=== PATIENT | female | born 1940 | race Caucasian/White ===

== ENCOUNTER 2019-04-17 14:34 | Outpatient (CLI) | payer MEDICARE, SELFPAY ==
--- NOTE | 2019-04-17 14:42 | XR_ITS ---
WS: [id number] SCREENING DEXA SCAN [facility] CLINICAL INFORMATION: UNSPECIFIED VITAMIN D DEFICIENCY, OSTEOPENIA COMPARISON: None. FINDINGS: The L1-L4 bone mineral density measures 0.980 g/cm2. This corresponds to a T score score of -1.7 and Z score of 0.1. Left femoral neck bone mineral density measures 0.718 g/cm2. This corresponds to a T score of -2.3 an d Z score of -0.5. Right femoral neck bone mineral density measures 0.739 g/cm2. This corresponds to a T score -2.1of an d Z score of -0.3. Mean femoral neck bone mineral density measures 0.729 g/cm2. This corresponds to a T score of -2.2 an d Z score of -0.4. XR/XR DEXA axial skeleton* [id number] IMPRESSION: Osteopenia Patient's FRAX calculated 10 year probability for major osteoporotic fracture i s 25.5 % and osteoporotic hip fracture is 7.9%.
== END 2019-04-17 14:35 | disposition home or self-care (01) ==
LOC: RADWPI 14:41
PROVIDERS: Family Provider Electrodiagnostic Medicine; PCP Electrodiagnostic Medicine; Visit Provider Electrodiagnostic Medicine
DX: Z78.0 Asymptomatic menopausal state (principal); M85.80 Other specified disorders of bone density and structure, unspecified site; E55.9 Vitamin D deficiency, unspecified
CPT/HCPCS: 77080

== ENCOUNTER 2020-04-21 12:22 | Outpatient (CLI) | payer MEDICARE, SELFPAY ==
--- NOTE | 2020-04-21 12:36 | XRR_ITS ---
PROCEDURE INFORMATION: Exam: XR Lumbosacral Spine, 2 or 3 Views Exam date and time: 04/21/2020 1:14 PM Age: 79 years old Clinical indication: Low back pain; Prior surgery; Surgery type: Lumpectomy; Additional info: Sacroilitis/acute back pain TECHNIQUE: Imaging protocol: XR of the lumbosacral spine, 2 or 3 views. COMPARISON: CR Hip 2-3v RIGHT wwo Pelv* [id number] 09/27/2018 1:14 PM FINDINGS: Bones/joints: There is a compression fracture involving the superior endplate of the L1 vertebral body. Generalized osteopenia is seen. There is osteoarthritis present with narrowing of the L4-L5 disc space. Normal alignment. Soft tissues: Unremarkable. XR/XR lumbar spine 2-3V* [id number] IMPRESSION: 1. Osteopenia and osteoarthritis 2. Compression fracture superior endplate L1 vertebral body.
== END 2020-04-21 12:23 | disposition home or self-care (01) ==
PROVIDERS: PCP Electrodiagnostic Medicine; Visit Provider Electrodiagnostic Medicine
DX: M46.1 Sacroiliitis, not elsewhere classified (principal); M85.88 Other specified disorders of bone density and structure, other site; M81.0 Age-related osteoporosis without current pathological fracture; S32.010A Wedge compression fracture of first lumbar vertebra, initial encounter for closed fracture; X58.XXXA Exposure to other specified factors, initial encounter
CPT/HCPCS: 72100

== ENCOUNTER 2020-04-29 13:53 | Outpatient (CLI) | payer MEDICARE, SELFPAY ==
--- NOTE | 2020-04-29 14:25 | MR_ITS ---
WS: [id number] MRI LUMBAR SPINE NONCONTRAST HISTORY: WEDGE COMPRESSION FRACTURE OF LUMBAR VERTEBRAE, OSTEOPENIA COMPARISON: 04/21/2020. TECHNIQUE: Sagittal and axial multisequence imaging is submitted. Normal lumbar alignment. L1 compression fracture contains marrow edema suggesting this is acute to kirby bacute. Marrow edema extends through the mid vertebral body but also into the posterior elements. Les s than 2 mm retropulsion of the posterior superior endplate. Compression fracture by 20%. Posterior t o T12 is increased soft tissue which is low signal on all sequences. I suspect this may be an extrude d disc fragment extending cephalad from the T12-L1 disc. No contact on the cord. Diffuse moderate disc space narrowing and desiccation throughout the lumbar spine. Most significant d egenerative disease at L4-5. Conus terminates normally at L1-2 disc level. T12-L1: Very minimal retropulsion by 2 mm of the RIGHT posterior vertebral body. No significant steno sis or encroachment upon the nerve roots. L1-L2: Small amount of fluid in the facet joints. No stenosis. L2-L3: Mild annular disc bulging and osteophytic ridging. Mild encroachment upon the RIGHT lateral re cess. No high-grade stenosis. L3-L4: Diffuse annular disc bulging and osteophytic ridging. Flattening upon the ventral thecal sac b y the disc bulging with a more focal central disc protrusion. Mild central and bilateral subarticular recess and foraminal stenosis. L4-L5: Mild annular disc bulging and osteophytic ridging. Mild lateral recess narrowing and bilateral foraminal narrowing, RIGHT greater than LEFT. L5-S1: Moderate-sized central disc protrusion contacting the ventral thecal sac and the S1 nerve root s. More significant posterior displacement of the LEFT S1 nerve root. Mild bilateral foraminal narrow ing. MR/MR lumbar spine wo con* [id number] IMPRESSION: 1. 20% compression fracture of L1 with less than 2 mm retropulsion of posterio r superior endplate. Marrow edema extends into the posterior elements bilateral ly. 2. No significant stenosis at T12-L1. 3. Moderate size central disc protrusion at L5-S1 contacting the S1 nerve root s. Slightly greater contact and deformity of the LEFT S1 nerve root. 4. Mild narrowing of the RIGHT lateral recess at L2-3. 5. Mild central, bilateral subarticular recess and foraminal stenosis at L3-4. 6. Mild bilateral lateral recess and foraminal narrowing at L4-5, RIGHT greate r than LEFT. 7. Not included on the axial imaging is a possible disc extrusion extending ce phalad and posterior to the T12 vertebral body. If this is a disc protrusion it is not causing a significant stenosis or contact on the conus.
== END 2020-04-29 13:54 | disposition home or self-care (01) ==
PROVIDERS: PCP Electrodiagnostic Medicine; Visit Provider Electrodiagnostic Medicine
DX: S32.010A Wedge compression fracture of first lumbar vertebra, initial encounter for closed fracture (principal); M51.27 Other intervertebral disc displacement, lumbosacral region; M48.061 Spinal stenosis, lumbar region without neurogenic claudication; X58.XXXA Exposure to other specified factors, initial encounter
CPT/HCPCS: 72148

== ENCOUNTER 2021-05-18 10:15 | Outpatient (CLI) | payer MEDICARE, SELFPAY ==
--- NOTE | 2021-05-18 10:25 | XR_ITS ---
WS: [id number] SCREENING DEXA SCAN [employer] CLINICAL INFORMATION: AGE RELATED OSTEOPOROSIS W/O CURRENT PATHOLOGICAL FX COMPARISON: April 07, 2019 FINDINGS: The L1-L4 bone mineral density measures 1.036 g/cm2. This corresponds to a T score score of -1.2 and Z score of 0.5. Left femoral neck bone mineral density measures 0.761 g/cm2. This corresponds to a T score of -2.0 an d Z score of -0.1. Right femoral neck bone mineral density measures 0.753 g/cm2. This corresponds to a T score -2.0of an d Z score of -0.1. Mean femoral neck bone mineral density measures 0.757 g/cm2. This corresponds to a T score of -2.0 an d Z score of -0.1. XR/XR DEXA axial skeleton* [id number] IMPRESSION: Osteopenia Patient's FRAX calculated 10 year probability for major osteoporotic fracture i s 26.6 % and osteoporotic hip fracture is 8.4%.
== END 2021-05-18 10:16 | disposition home or self-care (01) ==
LOC: RAD 10:16
PROVIDERS: PCP Electrodiagnostic Medicine; Visit Provider Nurse Practitioner
DX: M81.0 Age-related osteoporosis without current pathological fracture (principal); M85.80 Other specified disorders of bone density and structure, unspecified site
CPT/HCPCS: 77080

== ENCOUNTER 2022-09-15 12:24 | Outpatient (CLI) | payer MEDICARE, SELFPAY ==
--- NOTE | 2022-09-15 12:35 | XR_ITS ---
WS: [id number] SCREENING DEXA SCAN [facility] CLINICAL INFORMATION: POST MENOPAUSAL COMPARISON: 2021 FINDINGS: The L1-L4 bone mineral density measures 1.109 g/cm2. This corresponds to a T score score of -0.6 and Z score of 1.2. Left femoral neck bone mineral density measures 0.756 g/cm2. This corresponds to a T score of -2.0 an d Z score of 0.0. Right femoral neck bone mineral density measures 0.761 g/cm2. This corresponds to a T score -2.0of an d Z score of 0.0. Mean femoral neck bone mineral density measures 0.758 g/cm2. This corresponds to a T score of -2.0 an d Z score of 0.0. XR/XR DEXA axial skeleton* [id number] IMPRESSION: Normal bone mineralization lumbar spine. Osteopenia femoral necks. Patient's FRAX calculated 10 year probability for major osteoporotic fracture i s 25.0 % and osteoporotic hip fracture is 7.8%. Bone mineral density lumbar spine increased 7.0% Bone mineral density femoral necks increased 0.1%
== END 2022-09-15 12:25 | disposition home or self-care (01) ==
PROVIDERS: PCP Electrodiagnostic Medicine; Visit Provider Physician Assistant
DX: Z13.820 Encounter for screening for osteoporosis (principal); Z78.0 Asymptomatic menopausal state; M85.852 Other specified disorders of bone density and structure, left thigh; M85.851 Other specified disorders of bone density and structure, right thigh
CPT/HCPCS: 77080

== ENCOUNTER 2023-12-12 12:40 | Outpatient (CLI) | payer MEDICARE, SELFPAY ==
--- NOTE | 2023-12-12 12:52 | MR_ITS ---
WS: [id number] MRI LUMBAR SPINE NONCONTRAST HISTORY: CHRONIC LOW BACK PAIN COMPARISON: 04/29/2020 TECHNIQUE: Sagittal and axial multisequence imaging is submitted. Posterior lumbar alignment is normal. 20% chronic compression fracture at L1. No acute marrow edema. Mild disc space narrowing and desiccation at L4-5. Conus terminates normally at L1-2 disc level. L1-L2: Mild annular disc bulging with mild facet and ligamentum flavum hypertrophy. Mild foraminal na rrowing. L2-L3: Mild annular disc bulging with a tiny central disc protrusion and annular fissure. Mild disc e ncroachment into the subarticular recesses. L3-L4: Diffuse annular disc bulging with osteophytic ridging. Moderate central disc protrusion deform ing the ventral thecal sac. Central disc protrusion has increased in size with slightly greater mass effect upon the nerve roots in the thecal sac. Moderate to severe central with bilateral subarticular recess and mild foraminal stenosis. L4-L5: Diffuse annular disc bulging with ligamentum flavum and facet arthritis. Mild encroachment upo n the thecal sac by ligamentum flavum hypertrophy. Mild central with moderate bilateral subarticular recess and foraminal stenosis. L5-S1: Mild annular disc bulging. Mild bilateral foraminal stenosis. Normal paravertebral soft tissues. MR/MR lumbar spine wo con* [id number] IMPRESSION: 1. Chronic L1 20% compression fracture. 2. No significant retropulsion of L1. 3. L3-4: Central disc protrusion is increased slightly in size since the prior study. Greater mass effect upon the nerve roots in the thecal sac. Moderate to severe central with bilateral subarticular recess and mild foraminal stenosis. 4. L1-2 and L5-S1: Mild foraminal stenosis. 5. L2-3: Mild disc encroachment into the subarticular recesses. 6. L4-5: Mild central with moderate bilateral subarticular recess and foramina l stenosis.
== END 2023-12-12 12:41 | disposition home or self-care (01) ==
LOC: RAD 12:41
PROVIDERS: PCP Electrodiagnostic Medicine; Visit Provider Electrodiagnostic Medicine
DX: M51.36 Other intervertebral disc degeneration, lumbar region (principal); M25.78 Osteophyte, vertebrae; M47.896 Other spondylosis, lumbar region; M99.63 Osseous and subluxation stenosis of intervertebral foramina of lumbar region
CPT/HCPCS: 72148

== ENCOUNTER 2024-10-29 12:03 | Outpatient (CLI) | payer MEDICARE, SELFPAY ==
--- NOTE | 2024-10-29 12:17 | MR_ITS ---
WS: [id number] MRI BRAIN WITH AND WITHOUT CONTRAST HISTORY: SHORT TERM MEMORY LOSS/OTHER AMNESIA COMPARISON: None available. TECHNIQUE: Multiplanar imaging performed through the brain with MultiHance 15 ml's IV. No acute infarcts are seen. Gage-white matter differentiation is well preserved. Moderate cerebral and cerebellar atrophy. Severe bilateral hippocampal atrophy. No prior hemorrhage. Mild small vessel disease. Ventricles and extra-axial spaces are normal. Clivus and pituitary gland are normal. Visualized posterior fossa and brainstem are also normal. Postcontrast images are negative for masses or vascular malformations. Nonvisualization distal RIGHT vertebral artery is probably normal variant. Dural venous sinuses are normal. Paranasal sinuses: Well aerated with no significant disease. Mastoid air cells: Normal. Calvarium and scalp: Normal. MR/MR head wo/w con [id number] IMPRESSION: 1. No acute infarct or hemorrhage. 2. Moderate cerebral and cerebellar atrophy. 3. Severe bilateral hippocampal atrophy. 4. No prior infarct. Mild small vessel disease.
== END 2024-10-29 12:04 | disposition home or self-care (01) ==
LOC: RAD 12:06
PROVIDERS: PCP Electrodiagnostic Medicine; Visit Provider Electrodiagnostic Medicine
DX: R41.3 Other amnesia (principal); G31.9 Degenerative disease of nervous system, unspecified; I67.89 Other cerebrovascular disease
CPT/HCPCS: 70553